=== PATIENT | male | born 1940 | race African-American/Black ===

== ENCOUNTER 2016-06-20 19:00 | Emergency (ER) | payer OTHER ==
[~2016-06-20] VITALS: Ht 177.8 cm; Wt 112.5 kg
[~2016-06-20 19:00] MED LIST: AMARYL2 M1 PO; AMARYL4 MG PO; ASA81BEC PO; ASPIR 8181 MG PO; BENICAR HCT 201 EACH PO; BENICAR20 MG PO; CLARITIN10 MG PO; COLACE100 MG PO; FLEXERIL PO; FLOMAX0.4 MG PO; GLYBURIDE 5 MG T5 M1 PO; GUAIFENESIN WI120 ML PO; IBUPROFEN 200200 M1 PO; KEFLEX500 MG PO; LEVAQUIN 750 M750 MG PO; NAPROSYN250 MG PO; NORCO 5-325 TA1 EACH PO; NORFLEX100 MG PO; PHENAZOPYRIDIN200 M2 PO; PROVENTIL HFA6.7 G1 INH; ROBAXIN 750 MG750 M1 PO; TYLENOL325 MG PO; ZPAK PO
[2016-06-20] MEDS ORDERED: SENOKOT-S1 TA1 PO (20:53)
[2016-06-20] MEDS ORDERED: NORCO 5-325 TA1 EACH PO (21:02)
== END 2016-06-20 21:11 | disposition home or self-care (01) ==
LOC: ER 19:00
DX: M16.11 Unilateral primary osteoarthritis, right hip (principal); I10 Essential (primary) hypertension; E11.9 Type 2 diabetes mellitus without complications; G47.30 Sleep apnea, unspecified; Z87.891 Personal history of nicotine dependence

== ENCOUNTER 2016-11-26 20:26 | Emergency (ER) | payer OTHER ==
[~2016-11-26] VITALS: Ht 177.8 cm; Wt 106.6 kg
[~2016-11-26 20:26] MED LIST changes: +SENOKOT-S1 TA1 PO
[2016-11-26] MEDS ORDERED: FLONASE 0.05%50 MCG NASAL (22:15)
[2016-11-26] MEDS ORDERED: TESSALON PERLE100 MG PO (22:15)
[2016-11-26] MEDS ORDERED: COZAAR 25 MG TA25 MG PO (22:22)
== END 2016-11-26 22:50 | disposition home or self-care (01) ==
LOC: ER 20:26
DX: J06.9 Acute upper respiratory infection, unspecified (principal); I10 Essential (primary) hypertension; E11.9 Type 2 diabetes mellitus without complications; G47.30 Sleep apnea, unspecified; Z87.891 Personal history of nicotine dependence

== ENCOUNTER 2017-02-02 18:57 | Emergency (ER) | payer OTHER ==
[~2017-02-02] VITALS: Ht 180.3 cm; Wt 106.6 kg
[~2017-02-02 18:57] MED LIST changes: +COZAAR 25 MG TA25 MG PO; +FLONASE 0.05%50 MCG NASAL; +TESSALON PERLE100 MG PO
[2017-02-02] MEDS ORDERED: COZAAR 25 MG TA25 M1 PO (19:28)
[2017-02-02] MEDS ORDERED: IBUPROFEN 600600 M1 PO (21:01)
== END 2017-02-02 21:22 | disposition home or self-care (01) ==
LOC: ER 18:57
DX: S01.81XA Laceration without foreign body of other part of head, initial encounter (principal); I10 Essential (primary) hypertension; E11.9 Type 2 diabetes mellitus without complications; Z87.891 Personal history of nicotine dependence; V89.2XXA Person injured in unspecified motor-vehicle accident, traffic, initial encounter; Y93.89 Activity, other specified; Y92.89 Other specified places as the place of occurrence of the external cause; Y99.8 Other external cause status

== ENCOUNTER 2017-05-13 20:34 | Emergency (ER) | payer OTHER ==
[~2017-05-13] VITALS: Ht 177.8 cm; Wt 104.3 kg
--- NOTE | ~2017-05-13 | EKG ---
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 Clerk: francisca : 1940 Requested By: Jonathan Ortiz Order Number: [id number] MD: Shalom Young Measurements Intervals [place] Rate: 55 P: -2 UT: 228 QRS: -3 QRSD: 93 T: 19 QT: 423 QTc: 405 Interpretive Statements Sinus rhythm Prolonged [place] interval Low voltage, precordial leads Compared to ECG 10/19/2014 07:57:12 Low QRS voltage now present ST (T wave) deviation no longer present Electronically Signed On 05-14-2017 10:11:53 COTTON PRESSER by Shalom Young [email or web address] <ELECTRONICALLY SIGNED> By: Shalom Young MD 05/14/17 1011 45 45 Shalom Young MD /MARYURI
[~2017-05-13 20:34] MED LIST changes: +COZAAR 25 MG TA25 M1 PO; +IBUPROFEN 600600 M1 PO
[2017-05-13 21:07] LABS: ABSOLUTE NEUTROPHILS 2.1 thou/uL (1.4-8.2); BASOPHILS 0.9 % (0.0-2.0); EOSINOPHILS 4.1 % (0.0-3.0); HEMATOCRIT 40.7 % (42.0-52.0); HEMOGLOBIN 13.5 gm/dL (14.0-18.0); LYMPHOCYTES 43.8 % (24.0-44.0); MCH 30.9 pg (26.0-34.0); MCHC 33.2 g/dL (28.0-37.0); MCV 92.8 fL (80.0-100.0); MONOCYTES 6.8 % (1.0-8.0); PLATELET COUNT 123 thou/uL (150-400); POLYS 44.4 % (36.0-66.0); RBC 4.39 mil/uL (4.50-6.00); RDW 14.1 % (10.5-14.5); WBC 4.7 thou/uL (4.0-11.0)
[2017-05-13 21:14] LABS: ANION GAP 8 mmol/L (7-16); BUN 21 mg/dL (7-18); CALCIUM 9.1 mg/dL (8.5-10.1); CHLORIDE 104 mmol/L (98-107); CO2 27 mmol/L (21-32); CREATININE 1.4 mg/dL (0.7-1.3); GLUCOSE 128 mg/dL (74-106); SODIUM 139 mmol/L (136-145)
[2017-05-13 21:22] LABS: ALBUMIN 3.8 g/dL (3.4-5.0); LIPASE 69 U/L (73-393); SGOT 22 U/L (15-37); SGPT 29 U/L (30-65); TOTAL BILIRUBIN 0.6 mg/dL (<0.1-1.0); TOTAL PROTEIN 7.3 g/dL (6.4-8.2); TROPONIN-I < 0.04 ng/mL (<0.06)
[2017-05-13 22:42] LABS: URINE BILIRUBIN NEGATIVE (Negative); URINE BLOOD TRACE (Negative); URINE CLARITY CLEAR; URINE COLOR YELLOW; URINE GLUCOSE-RANDOM* NEGATIVE (Negative); URINE KETONES NEGATIVE (Negative); URINE LEUKOCYTES-REFLEX NEGATIVE (Negative); URINE NITRITE-REFLEX NEGATIVE (Negative); URINE PROTEIN (DIPSTICK) NEGATIVE (Negative); URINE SPECIFIC GRAVITY <= 1.005 (1.005-1.035)
[2017-05-14 00:03] VITALS: BP 146/85
[2017-10-29] MEDS ORDERED: HYDROCHLOROTH12.5 M1 PO (12:37)
[2017-10-29] MEDS ORDERED: COLACE100 MG PO (12:37)
[2017-10-29] MEDS ORDERED: BUTALB-APAP-CA1 EACH PO (12:37)
== END 2017-05-14 00:03 | disposition home or self-care (01) ==
LOC: ER 20:34
PROVIDERS: Emergency Medicine
DX: N40.0 Benign prostatic hyperplasia without lower urinary tract symptoms (principal); R10.32 Left lower quadrant pain; K59.00 Constipation, unspecified; I10 Essential (primary) hypertension; E11.9 Type 2 diabetes mellitus without complications; G47.30 Sleep apnea, unspecified; Z87.891 Personal history of nicotine dependence

== ENCOUNTER 2017-08-14 15:15 | Emergency (ER) | payer OTHER ==
[~2017-08-14] VITALS: Ht 177.8 cm; Wt 103.4 kg
[2017-08-14 16:32] LABS: ABSOLUTE NEUTROPHILS 4.7 thou/uL (1.4-8.2); BASOPHILS 0.2 % (0.0-2.0); EOSINOPHILS 0.6 % (0.0-3.0); HEMATOCRIT 40.3 % (42.0-52.0); HEMOGLOBIN 13.6 gm/dL (14.0-18.0); MCH 31.2 pg (26.0-34.0); MCHC 33.6 g/dL (28.0-37.0); MCV 92.6 fL (80.0-100.0); PLATELET COUNT 109 thou/uL (150-400); POLYS 87.2 % (36.0-66.0); RBC 4.35 mil/uL (4.50-6.00); RDW 14.2 % (10.5-14.5); WBC 5.4 thou/uL (4.0-11.0)
[2017-08-14 16:43] LABS: CALCIUM 8.6 mg/dL (8.5-10.1); CREATININE 1.4 mg/dL (0.7-1.3)
[2017-08-14 16:49] LABS: ALBUMIN 3.9 g/dL (3.4-5.0); DIRECT BILIRUBIN 0.2 mg/dL (<0.1-0.3); TOTAL BILIRUBIN 0.6 mg/dL (<0.1-1.0); TOTAL PROTEIN 7.2 g/dL (6.4-8.2)
[2017-08-14 17:50] LABS: URINE BILIRUBIN NEGATIVE (Negative); URINE BLOOD TRACE (Negative); URINE CLARITY CLEAR; URINE COLOR YELLOW; URINE GLUCOSE-RANDOM* NEGATIVE (Negative); URINE KETONES NEGATIVE (Negative); URINE LEUKOCYTES NEGATIVE (Negative); URINE NITRITE NEGATIVE (Negative); URINE PROTEIN (DIPSTICK) NEGATIVE (Negative); URINE UROBILINOGEN 0.2 E.U./dl (0.2-1.0)
[2017-08-14] MEDS ORDERED: CIPRO500 MG PO (18:16)
[2017-08-14] MEDS ORDERED: ONDANSETRON HCL4 M2 PO (18:16)
== END 2017-08-14 18:46 | disposition home or self-care (01) ==
LOC: ER 15:15
PROVIDERS: Nurse Practitioner
DX: A09 Infectious gastroenteritis and colitis, unspecified (principal); I10 Essential (primary) hypertension; E11.9 Type 2 diabetes mellitus without complications; F17.210 Nicotine dependence, cigarettes, uncomplicated

== ENCOUNTER 2018-06-11 19:59 | Emergency (ER) | payer OTHER ==
[~2018-06-11] VITALS: Ht 177.8 cm; Wt 102.1 kg
[~2018-06-11 19:59] MED LIST changes: +BUTALB-APAP-CA1 EACH PO; +CIPRO500 MG PO; +HYDROCHLOROTH12.5 M1 PO; +ONDANSETRON HCL4 M2 PO
[2018-06-11 20:27] LABS: ABSOLUTE NEUTROPHILS 3.3 thou/uL (1.4-8.2); BASOPHILS 0.6 % (0.0-2.0); EOSINOPHILS 2.1 % (0.0-3.0); HEMATOCRIT 42.5 % (42.0-52.0); HEMOGLOBIN 14.1 gm/dL (14.0-18.0); LYMPHOCYTES 31.8 % (24.0-44.0); MCHC 33.3 g/dL (28.0-37.0); MCV 93.1 fL (80.0-100.0); MONOCYTES 6.4 % (1.0-8.0); PLATELET COUNT 108 thou/uL (150-400); POLYS 59.1 % (36.0-66.0); RBC 4.56 mil/uL (4.50-6.00); RDW 13.7 % (10.5-14.5); WBC 5.6 thou/uL (4.0-11.0)
[2018-06-11 20:38] LABS: ANION GAP 11 mmol/L (7-16); BUN 25 mg/dL (7-18); CALCIUM 9.3 mg/dL (8.5-10.1); CHLORIDE 104 mmol/L (98-107); CO2 27 mmol/L (21-32); CREATININE 1.5 mg/dL (0.7-1.3); GLUCOSE 133 mg/dL (74-106); POTASSIUM 3.9 mmol/L (3.5-5.1); SODIUM 142 mmol/L (136-145)
[2018-06-11 20:44] LABS: SGOT 16 U/L (15-37); SGPT 26 U/L (30-65); TOTAL BILIRUBIN 0.7 mg/dL (<0.1-1.0); TOTAL PROTEIN 7.4 g/dL (6.4-8.2); TROPONIN-I <0.06 ng/mL (<0.06)
[2018-06-11] MEDS ORDERED: MOBIC15 MG PO (21:58)
[2018-06-11 22:03] VITALS: BP 138/75
--- NOTE | 2018-06-12 00:13 | EKG ---
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 : 1940 Requested By: Dianne Palacios Order Number: [id number] MD: Rome Obrien Measurements Intervals [place] Rate: 66 P: 39 KS: 229 QRS: 17 QRSD: 85 T: 120 QT: 366 QTc: 384 Interpretive Statements Sinus rhythm Prolonged KS interval early transition Nonspecific ST/T abnormalities Compared to ECG 05/13/2017 20:46:21 no significant changes Electronically Signed On 06-12-2018 0:13:34 CDT by Rome Obrien [email or web address] ��������������������������������������������� <ELECTRONICALLY SIGNED> ���������������������������������������� By: Rome Obrien MD ��������������������������������������������� 06/12/18 0013 04 José Luis Obrien MD /MARYURI
== END 2018-06-11 22:04 | disposition home or self-care (01) ==
LOC: ER 19:59
PROVIDERS: Emergency Medicine
DX: R07.89 Other chest pain (principal); I10 Essential (primary) hypertension; E11.9 Type 2 diabetes mellitus without complications; G47.30 Sleep apnea, unspecified; Z87.891 Personal history of nicotine dependence

== ENCOUNTER 2018-07-07 20:42 | Emergency (ER) | payer OTHER ==
[~2018-07-07] VITALS: Ht 177.8 cm; Wt 100.7 kg
[~2018-07-07 20:42] MED LIST changes: +MOBIC15 MG PO
[2018-07-07 20:43] VITALS: BP 112/76
[2018-07-07] MEDS ORDERED: ZYRTEC10 M2 PO (21:00)
[2018-07-07] MEDS ORDERED: FLONASE 0.05%50 MCG NASAL (21:00)
== END 2018-07-07 21:14 | disposition home or self-care (01) ==
LOC: ER 20:42
DX: J30.9 Allergic rhinitis, unspecified (principal); I10 Essential (primary) hypertension; E11.9 Type 2 diabetes mellitus without complications; G47.30 Sleep apnea, unspecified; Z87.891 Personal history of nicotine dependence

== ENCOUNTER 2019-01-13 11:19 | Emergency (ER) | payer OTHER ==
[~2019-01-13] VITALS: Ht 177.8 cm; Wt 102.1 kg
[~2019-01-13 11:19] MED LIST changes: +ZYRTEC10 M2 PO
[2019-01-13] MEDS ORDERED: ROXICODONE5 M2 PO (12:13)
[2019-01-13] MEDS ORDERED: SENNA-DOCUSATE1 EAC1 PO (12:13)
[2019-01-13] MEDS ORDERED: CLEOCIN HCL150 MG PO (12:13)
[2019-01-13 12:48] VITALS: BP 118/79
== END 2019-01-13 12:48 | disposition home or self-care (01) ==
LOC: ER 11:19
DX: L03.317 Cellulitis of buttock (principal); I10 Essential (primary) hypertension; E11.9 Type 2 diabetes mellitus without complications; G47.30 Sleep apnea, unspecified; Z87.891 Personal history of nicotine dependence

== ENCOUNTER 2019-01-15 14:50 | Emergency (ER) | payer OTHER ==
[~2019-01-15] VITALS: Ht 177.8 cm; Wt 102.1 kg
[~2019-01-15 14:50] MED LIST changes: +CLEOCIN HCL150 MG PO; +ROXICODONE5 M2 PO; +SENNA-DOCUSATE1 EAC1 PO
[2019-01-15 16:10] LABS: ABSOLUTE NEUTROPHILS 3.1 thou/uL (1.4-8.2); BASOPHILS 0.5 % (0.0-2.0); EOSINOPHILS 2.7 % (0.0-3.0); HEMATOCRIT 36.2 % (42.0-52.0); HEMOGLOBIN 11.7 gm/dL (14.0-18.0); LYMPHOCYTES 25.9 % (24.0-44.0); MCH 30.2 pg (26.0-34.0); MCHC 32.4 g/dL (28.0-37.0); MCV 93.2 fL (80.0-100.0); PLATELET COUNT 137 thou/uL (150-400); POLYS 59.9 % (36.0-66.0); RBC 3.88 mil/uL (4.50-6.00); RDW 14.8 % (10.5-14.5); WBC 5.2 thou/uL (4.0-11.0)
[2019-01-15 16:16] LABS: CREATININE 1.4 mg/dL (0.7-1.3)
[2019-01-15 16:22] LABS: ALBUMIN 3.4 g/dL (3.4-5.0); TOTAL BILIRUBIN 0.4 mg/dL (<0.1-1.0); TOTAL PROTEIN 7.1 g/dL (6.4-8.2)
[2019-01-15] MEDS ORDERED: DIPHENHIST50 MG PO (16:57)
[2019-01-15 17:07] VITALS: BP 134/65
== END 2019-01-15 17:07 | disposition home or self-care (01) ==
LOC: ER 14:50
PROVIDERS: Nurse Practitioner Family
DX: L05.01 Pilonidal cyst with abscess (principal); I10 Essential (primary) hypertension; E11.9 Type 2 diabetes mellitus without complications; G47.30 Sleep apnea, unspecified; Z87.891 Personal history of nicotine dependence

== ENCOUNTER 2019-05-03 14:36 | Emergency (ER) | payer OTHER ==
[~2019-05-03] VITALS: Ht 177.8 cm; Wt 103.4 kg
[~2019-05-03 14:36] MED LIST changes: +DIPHENHIST50 MG PO
[2019-05-03 14:37] VITALS: BP 137/79
[2019-05-03] MEDS ORDERED: MOBIC7.5 MG PO (15:45)
--- NOTE | 2019-05-03 18:24 | EKG ---
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 Hand: dedra : 1940 Requested By: Rani Shah Order Number: [id number] MD: Neel Moralez Measurements Intervals [place] Rate: 55 P: 48 OR: 249 QRS: -11 QRSD: 98 T: 70 QT: 422 QTc: 404 Interpretive Statements Sinus rhythm Prolonged OR interval Abnormal R-wave progression, early transition Left ventricular hypertrophy Compared to ECG 06/11/2018 20:05:22 Left ventricular hypertrophy now present Electronically Signed On 05-03-2019 18:23:01 SET O TYPE OPERATOR by Neel Moralez [email or web address] <ELECTRONICALLY SIGNED> By: Neel Moralez MD 05/03/19 1823 1537 153 Neel Moralez MD /MARYURI
== END 2019-05-03 16:04 | disposition home or self-care (01) ==
LOC: ER 14:36
DX: M54.10 Radiculopathy, site unspecified (principal); M25.512 Pain in left shoulder; I10 Essential (primary) hypertension; E11.9 Type 2 diabetes mellitus without complications; G47.30 Sleep apnea, unspecified; Z87.891 Personal history of nicotine dependence

== ENCOUNTER 2019-08-21 06:20 | Day surgery (SDC) | payer OTHER ==
[~2019-08-21] VITALS: Ht 188 cm; Wt 101.6 kg
[~2019-08-21 06:20] MED LIST changes: +COQ-10100 MG PO; +MOBIC7.5 MG PO; +VALSARTAN-HCTZ1 EAC3 PO; +[UNRECOGNIZED DRUG - OTHER] PO
[2019-08-21 07:33] LABS: HEMATOCRIT 40.4 % (42.0-52.0); HEMOGLOBIN 13.3 gm/dL (14.0-18.0); MCHC 33.1 g/dL (28.0-37.0); MCV 93.6 fL (80.0-100.0); RBC 4.31 mil/uL (4.50-6.00); RDW 14.5 % (10.5-14.5); WBC 4.5 thou/uL (4.0-11.0)
[2019-08-21 07:44] VITALS: BP 146/80
[2019-08-21 07:49] LABS: CALCIUM 8.9 mg/dL (8.5-10.1); CREATININE 1.4 mg/dL (0.7-1.3); POTASSIUM 3.9 mmol/L (3.5-5.1)
[2019-08-21] MEDS ORDERED: MIRALAX17 GM PO (08:27)
[2019-08-21] MEDS ORDERED: PERCOCET PO (08:27)
[2019-08-21 08:45] VITALS: BP 146/80
--- NOTE | 2019-08-23 13:09 | PATH ---
[facility] [address] [place] [address] PATHOLOGY RPT PROCEDURE Name: ELLA WAN Room #: DEP [facility] M.R.#: [id number] Admission: 08/21/19 Date of : 36 Discharge: 08/21/19 Report #: [id number] Path Case #: [id number] LCA Accession Number: [id number] . 01 Material submitted: . buttock - LEFT GLUTEAL ABSCESS. Modifiers: left . 01 Clinical history: . Perirectal abscess . 02 Diagnosis: Skin and subcutaneous tissue "left gluteal abscess", excision: - Marked acute and chronic inflammation with granulation tissue formation, consistent with abscess formation. - Negative for malignancy. . (MLK:lea; 08/22/2019) QMS 08/23/2019 1203 Local . 02 Electronically signed: . Kajal Stockton MD, Pathologist NPI- [id number] . 01 Gross description: . The specimen is received in formalin, labeled "Ella Wan Jr., left gluteal abscess". Received is a segment of pale junior tissue with attached possible valdez-brown skin measuring 1.6 x 1.0 x 0.4 cm in greatest dimensions. The specimen is submitted entirely in cassette A1. (CAA; 08/21/2019) QAC/QAC 08/21/2019 1800 Local . 02 Pathologist provided ICD-10: L02.31 . 02 CPT . 612746 Specimen Comment: A courtesy copy of this report has been sent to [phone] Specimen Comment: [phone] Specimen Comment: Report sent to / DR BUSTAMANTE Performed at: [address] [id number] MD Jl Cowart MD Phone: [phone] Performed at: [address] [id number] [address] [address] PATHOLOGY RPT PROCEDURE Name: ELLA WAN JR Room #: DEP [facility] Fani#: [id number] Admission: 08/21/19 Date of : 36 Discharge: 08/21/19 Report #: [id number] Path Case #: [id number] MD Di Vergara MD Phone: [phone]
== END 2019-08-21 09:35 | disposition home or self-care (01) ==
LOC: TBA 06:20 → OR 06:20
PROVIDERS: Surgery
DX: L02.31 Cutaneous abscess of buttock (principal); I10 Essential (primary) hypertension; E11.9 Type 2 diabetes mellitus without complications; G47.30 Sleep apnea, unspecified; Z98.890 Other specified postprocedural states; Z79.899 Other long term (current) drug therapy; Z96.653 Presence of artificial knee joint, bilateral; Z96.641 Presence of right artificial hip joint; Z98.41 Cataract extraction status, right eye; Z98.42 Cataract extraction status, left eye; Z87.891 Personal history of nicotine dependence; Z11.59 Encounter for screening for other viral diseases
CPT/HCPCS: 50010; 50101; 50386; 50403; 56527; 62110; 62900; 70005

== ENCOUNTER → 2019-09-10 | Outpatient (CLI) | payer OTHER ==
[~2019-09-10] MED LIST changes: +MIRALAX17 GM PO; +PERCOCET PO
== END ==
LOC: HYPER 08:03
PROVIDERS: ATTEND Emergency Medicine
DX: T81.31XA Disruption of external operation (surgical) wound, not elsewhere classified, initial encounter (principal); K61.1 Rectal abscess; E66.9 Obesity, unspecified; G47.30 Sleep apnea, unspecified; I10 Essential (primary) hypertension; Z87.891 Personal history of nicotine dependence; Z96.659 Presence of unspecified artificial knee joint; Z96.649 Presence of unspecified artificial hip joint; Z68.33 Body mass index [BMI] 33.0-33.9, adult; Y92.238 Other place in hospital as the place of occurrence of the external cause; Y83.8 Other surgical procedures as the cause of abnormal reaction of the patient, or of later complication, without mention of misadventure at the time of the procedure

== ENCOUNTER → 2019-09-17 | Outpatient (CLI) | payer OTHER | LOC: HYPER 08:00 | PROVIDERS: ATTEND Emergency Medicine | DX: T81.31XD Disruption of external operation (surgical) wound, not elsewhere classified, subsequent encounter (principal); K61.1 Rectal abscess; E66.9 Obesity, unspecified; G47.30 Sleep apnea, unspecified; I10 Essential (primary) hypertension; Z87.891 Personal history of nicotine dependence; Z68.33 Body mass index [BMI] 33.0-33.9, adult; Y83.8 Other surgical procedures as the cause of abnormal reaction of the patient, or of later complication, without mention of misadventure at the time of the procedure ==

== ENCOUNTER → 2019-10-01 | Outpatient (CLI) | payer OTHER | LOC: HYPER 10:42 | PROVIDERS: ATTEND Emergency Medicine | DX: T81.31XD Disruption of external operation (surgical) wound, not elsewhere classified, subsequent encounter (principal); K61.1 Rectal abscess; I10 Essential (primary) hypertension; G47.30 Sleep apnea, unspecified; Z87.891 Personal history of nicotine dependence; Y83.8 Other surgical procedures as the cause of abnormal reaction of the patient, or of later complication, without mention of misadventure at the time of the procedure ==

== ENCOUNTER 2019-10-13 15:41 | Inpatient (IN) | payer OTHER ==
[~2019-10-13] VITALS: Ht 177.8 cm; Wt 104.3 kg
[2019-10-13 15:49] VITALS: BP 96/61
[2019-10-13 16:53] LABS: ABSOLUTE NEUTROPHILS 2.5 thou/uL (1.4-8.2); BASOPHILS 0.7 % (0.0-2.0); EOSINOPHILS 4.8 % (0.0-3.0); HEMATOCRIT 41.6 % (42.0-52.0); HEMOGLOBIN 13.9 gm/dL (14.0-18.0); LYMPHOCYTES 40.3 % (24.0-44.0); MCH 30.9 pg (26.0-34.0); MCHC 33.4 g/dL (28.0-37.0); MCV 92.4 fL (80.0-100.0); MONOCYTES 8.5 % (1.0-8.0); PLATELET COUNT 125 thou/uL (150-400); POLYS 45.7 % (36.0-66.0); RDW 14.2 % (10.5-14.5); WBC 5.4 thou/uL (4.0-11.0)
[2019-10-13 16:57] LABS: ANION GAP 9 mmol/L (7-16); BUN 18 mg/dL (7-18); CHLORIDE 101 mmol/L (98-107); CO2 26 mmol/L (21-32); CREATININE 1.8 mg/dL (0.7-1.3); GLUCOSE 194 mg/dL (74-106); POTASSIUM 3.8 mmol/L (3.5-5.1); SODIUM 136 mmol/L (136-145)
[2019-10-13 17:05] LABS: TROPONIN-I <0.06 ng/mL (<0.06)
[2019-10-13 19:15] LABS: URINE BILIRUBIN NEGATIVE (Negative); URINE BLOOD NEGATIVE (Negative); URINE CLARITY CLEAR; URINE COLOR YELLOW; URINE GLUCOSE-RANDOM* NEGATIVE (Negative); URINE KETONES NEGATIVE (Negative); URINE LEUKOCYTES-REFLEX NEGATIVE (Negative); URINE NITRITE-REFLEX NEGATIVE (Negative); URINE PROTEIN (DIPSTICK) NEGATIVE (Negative); URINE UROBILINOGEN 0.2 E.U./dl (0.2-1.0)
[2019-10-13 20:15] VITALS: BP 135/71
[2019-10-13 20:49] VITALS: BP 130/75
[2019-10-13 21:05] VITALS: BP 142/74
--- NOTE | 2019-10-14 02:44 | NUR ---
RECEIVED REPORT FROM [place] ED RN.PATIENT ARRIVED TO ROOM 219.PATIENT A/O X3.FORGETFUL.UP INDEPENDENTLY.GENERALIZED PAIN.TYLENOL GIVEN.DENIES SOB. CALLED AND MENTION ABOUT PATIENT'S POSSIBLE EXPOSURE TO CARBON MONOXIDE LAST MONDAY.SHE ALSO MENTION THAT THE PATIENT HAS NOT BEEN USING HIS CPAP DUE TO DISCOMFORT.MONITOR SHOWS YOVANNY.PATIENT DENIES DIZZINESS.POC CONTINUED.
[2019-10-14 03:19] VITALS: BP 128/75
[2019-10-14 05:28] LABS: ANION GAP 7 mmol/L (7-16); BUN 18 mg/dL (7-18); CALCIUM 8.2 mg/dL (8.5-10.1); CHLORIDE 105 mmol/L (98-107); CHOLESTEROL 137 mg/dL (<200); CO2 28 mmol/L (21-32); CREATININE 1.5 mg/dL (0.7-1.3); GLUCOSE 159 mg/dL (74-106); HDL CHOLESTEROL 35 mg/dL (>40); LDL CHOLESTEROL 81 mg/dL (<100); POTASSIUM 3.5 mmol/L (3.5-5.1); SERUM ASSESSMENT Clear; SODIUM 140 mmol/L (136-145); TC:HDL 3.9 Ratio (Not establshd); TRIGLYCERIDE 107 mg/dL (<150); VLDL 21 mg/dL (<40)
[2019-10-14 08:00] VITALS: BP 135/79
--- NOTE | 2019-10-14 08:05 | EKG ---
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 10/14/19 0805 1652 1652 Enrique Pino MD, [facility] /EPI
--- NOTE | 2019-10-14 08:13 | EKG ---
[facility] [place] [address] ELECTROCARDIOGRAM REPORT Name: ELLA ALONSO Room #: 219-P ADM IN M.R.#: [id number] Admission: 10/13/19 Attend Phys: Beto Becerril MD, Discharge: Date of : 38 Report #: [id number] THIS REPORT FOR: cc: FAM - Family physician unknown FAM - Family physician unknown Neel Moralez MD ~ THIS REPORT FOR: //name// [facility] Test Date: 2019-10-14 Test Time: 07:29:42 Pat Name: ELLA ALONSO Department: Room: 219 P Gender: M Reporting Consultant: [facility] : 1940 Requested By: Artem Paige Order Number: [id number] : Neel Moralez Measurements Intervals [place] Rate: 48 P: 54 DC: 285 QRS: 5 QRSD: 97 T: 51 QT: 464 QTc: 415 Interpretive Statements Sinus bradycardia Prolonged [place] interval Posterior infarct, old Compared to ECG 10/13/2019 17:11:41 Myocardial infarct finding now present Sinus rhythm no longer present T-wave abnormality no longer present Electronically Signed On 10-14-2019 8:13:42 CDT by Neel Moralez [email or web address] <ELECTRONICALLY SIGNED> By: Neel Moralez MD 10/14/19812 8 8 Neel Moralez MD /EPI
--- NOTE | 2019-10-14 13:13 | EXE ---
[facility] [place] [address] STRESS ECHOCARDIOGRAM Name: ELLA ALONSO Room #: 219-P [facility] IN M.R.#: [id number] Admission: 10/13/19 Attend Phys: Beto Becerril MD, Discharge: Date of : 38 Report #: [id number] THIS REPORT FOR: cc: FAM - Family physician unknown FAM - Family physician unknown Beto Becerril MD [facility] ~ THIS REPORT FOR: //name// APPROVED REPORT Study performed: 10/14/2019 10:05:35 Exam: Stress Echocardiogram Indication: Atrial Fibrillation Patient Location: In-Patient Room #: 219 Status: routine Ht: 5 ft 10 in HR: 53 bpm BP: 118/76 mmHg Rhythm: Bradycardia Medical History Cardiac Risk Factors: HTN Exercise History: Indeterminate Procedure The patient underwent an Exercise Stress Test using the Papo Protocol. Blood pressure, heart rate, and EKG were monitored. An Echocardiogram was performed by solar panel technician in four stages in quad fashion. At peak stress, four selected images were obtained and placed side by side with resting images for comparison. Stress Test Details Stress Test: Exercise stress testing was performed using a Papo protocol. HR Resting HR: 53 bpm Max Heart Rate (APMHR): 139 bpm Max HR Achieved: 117 bpm Target HR (85% APMHR): 118 bpm % of APMHR: 84 Recovery HR: 59 bpm HR response to stress: Normal HR response to stress BP [facility] [address] [place] [address] STRESS ECHOCARDIOGRAM Name: ELLA ALONSO Room #: 219-P ADM IN M.R.#: [id number] Admission: 10/13/19 Attend Phys: Beto Becerril, Discharge: Date of : 36 Report #: [id number] Resting BP: 118/76 mmHg Max BP: 132/80 mmHg Recovery BP: 132/76 mmHg BP response to stress: Normal blood pressure response to stress. ECG Clinical Reason for Termination: Maximal effort Exercise duration: 6 min sec Highest Stage Achieved: Stage 2: 2.5 mph at 12% grade. Exercise capacity: 7.2 METs Overall Exercise Capacity for Age: Average Pre-Stress Echo The resting Echocardiogram showed normal left ventricular contractility with an estimated Ejection Fraction of about >55%. The resting echocardiogram demonstrated normal wall motion in all wall segments. Post-Stress Echo The stress Echocardiogram showed normal left ventricular contractility with an estimated Ejection Fraction of about 65-70%. Compared to rest, there were no stress-induced wall motion abnormalities. Conclusion Clinical Response: Non-ischemic Exercise Capacity: Average Stress ECG Response: Non-ischemic Stress Echo Images: Equivocal submax heart rate No prior study available for comparison. Other Information Study Quality: Adequate <Conclusion> submax heart rate <ELECTRONICALLY SIGNED> By: Beto Becerril MD, [facility] 10/14/19 1312 11 11 Beto Becerril MD, FACC /INF
--- NOTE | 2019-10-14 14:37 | H ---
[facility] [place] [address] HISTORY AND PHYSICAL Name: ELLA ALONSO Room #: 219-P ADM IN M.R.#: [id number] Admission: 10/13/19 Attend Phys: Beto Becerril MD, Discharge: Date of : 36 Report #: [id number] THIS REPORT FOR: cc: FAM - Family physician unknown FAM - Family physician unknown Beto Becerril MD [facility] ~ CC: [facility] unknown Beto Ochoa MD HISTORY OF PRESENT ILLNESS: The patient is an 79-year-old male. He is father of Dr. Stephie Ochoa, who came in the Emergency Room with 4 days of episodes of dizzy, lightheadedness and near syncopal episodes. He had been out in the heat and humidity, which has been extremely high here over the last few days. He takes valsartan HCT 320/25. He was predominantly bradycardic in the 50s and 60s in the Emergency Room. Report from the ER physician and looking for strips was that there was some paroxysms of AFib with a more rapid response with the rate in the 140 range. One strip evident here looks like there may be some AFib, RVR, so this may be consistent with a tachybrady issue. His rates are approaching 150, but they appear to be relatively shortlived. He said none of this ____ overnight, predominantly bradycardic in the 50s and 60s. He denies cardiac history. There has been no chest pain or anginal-type complaints. His father had an infarct in his 50s. No change in his exercise tolerance. MEDICATIONS: Valsartan HCT 320/25. PAST MEDICAL HISTORY: Positive for hypertension; 2 knee surgeries; hip replacement; cataract surgery; colonoscopy; sleep apnea, on CPAP; diet-controlled diabetes and a benign throat nodule. SOCIAL HISTORY: He is . Partially retired. No tobacco use. Minimal alcohol. Four children. ALLERGIES: No known drug allergies. FAMILY HISTORY: Father had an infarct in his 50s but lived until age 90. REVIEW OF SYSTEMS: Negative except for some occasional hesitancy and nocturia and as stated above. LABORATORY DATA: Sodium 140, potassium 3.5. Creatinine was 1.8, now 1.5 with some hydration overnight. Glucose 150s. Lipids are not elevated. Not on statin therapy. Total cholesterol 137, LDL 81. H and H are 13 and 41, white count is 5.4, platelets slightly low at 125. TSH 1.7. Hemoglobin A1c is pending. PHYSICAL EXAMINATION: [facility] [address] [place] [address] HISTORY AND PHYSICAL Name: ELLA ALONSO Room #: 219-P [facility] [place] .R.#: [id number] Admission: 10/13/19 Attend Phys: Beto Becerril MD, Discharge: Date of : 36 Report #: [id number] GENERAL: Pleasant, alert. He is comfortable in bed. VITAL SIGNS: Blood pressure 120s/70s, pulse is 50 and regular. HEENT: Eyes reveal xanthelasmas. Pharynx is clear. NECK: Shows preserved upstrokes without JVD or bruits. LUNGS: Clear. CARDIOVASCULAR: ____ regular rhythm, slightly bradycardic. No significant murmur or gallop. ABDOMEN: Soft. No HSM or abdominal bruit. EXTREMITIES: Reveal trace nonpitting edema. NEUROLOGIC: Nonfocal. SKIN: Warm and dry without xanthoma or ulcer. MUSCULOSKELETAL: Generalized arthritic changes. ASSESSMENT: 1. Presyncope, possible due to relative hypovolemia on ARB. 2. Paroxysmal atrial fibrillation with rapid ventricular response with underlying sinus bradycardia (tachybrady). 3. Degenerative joint disease. 4. Diet controlled diabetes. Awaiting hemoglobin A1c. RECOMMENDATIONS AND PLAN: Predominantly this is due to the ARB and the extreme heat and humidity and him to be an active outside, relative hypovolemia. Creatinine has improved 1.5. I will obtain a stress echo. He says he is certainly able to walk on treadmill looking for chronotropic response and ischemic response and would consider an outpatient monitor looking for the extent of paroxysmal atrial fibrillation. ____ are not able to really add any AV node inhibiting drugs on top of his bradycardia and see if there is recurrence of his AFib, it appeared to be AFib and not SVT or flutter with the rates were approaching 150 and these were transient from 2 or 3 strips from the Emergency Room. This has been discussed with the patient. Thank you for asking me to assist in the care of this patient. <ELECTRONICALLY SIGNED> By: Beto Becerril MD, [facility] 10/14/19 1437 0811 0849 Beto Becerril MD, FACC /nt
[2019-10-14 15:09] VITALS: BP 135/79
--- NOTE | 2019-10-14 17:13 | NUR ---
PT WAS DISCHARGED AROUND 1520, PIV AND TELE WERE DC'D. DISCHARGE INSTRUCTIONS REVIEWED WITH PT. ALL QUESTIONS ANSWERED. PT WHEELED OVER TO DR CONTEH'S OFFICE TO GET TELE MONITOR APPLIED.
--- NOTE | 2019-10-15 07:23 | EKG ---
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 : 1940 Requested By: Artem Paige Order Number: [id number] MD: Enrique Pino Measurements Intervals [place] Rate: 61 P: 52 [place]: 261 QRS: 20 QRSD: 89 T: 85 QT: 398 QTc: 401 Interpretive Statements Sinus rhythm Prolonged [place] interval Abnormal R-wave progression, early transition Borderline T wave abnormalities Compared to ECG 10/13/2019 16:52:46 No significant changes Electronically Signed On 10-15-2019 7:23:35 CDT by Enrique Pino [email or web address] <ELECTRONICALLY SIGNED> By: Enrique Pino MD, [facility] 10/15/19 0723 171 171 Enrique Pino MD, [facility] /EPI
--- NOTE | 2019-10-16 15:01 | D ---
[facility] [place] [address] [place] [address] DISCHARGE SUMMARY Name: ELLA ALONSO Room #: 219-P [facility] IN M.R.#: [id number] Admission: 10/13/19 Attend Phys: Beto Becerril MD, Discharge: 10/14/19 Date of : 36 Report #: [id number] THIS REPORT FOR: cc: ALISE - Family physician unknown FAM - Family physician unknown Beto Becerril MD [facility] ~ THIS REPORT FOR: //name// CC: ALISE unknown Beto Becerril [facility]: The patient is an 79-year-old male who was admitted from evidence of some tachybrady issues with some predominantly sinus bradycardia and presyncope, which I believe is predominantly due to the ARB, the valsartan and being out in the extremes of heat this summer. He was found to have some paroxysms of atrial fibrillation in the Emergency Room. There are some strips that are consistent with that with rates in the 140s range. These are short-lived and there has been no recurrence of that since his hospitalization here. Overnight, in fact, he has remained predominantly bradycardic. I did perform a stress echo here. He was able to go 6 minutes on a Papo protocol. Did have somewhat of a normal chronotropic response, obtained a maximum heart rate around 90, although made the stress portion somewhat submaximal. So it is exhibiting some slight decrease in chronotropic response, may be early sick sinus. No recurrent fibrillation issues noted and so we would hold on anticoagulation based on this very limited amount of findings. He will be discharged to home on one-half dose of his valsartan HCT 160/12.5. He is going to obtain a 2-week monitor, Zio patch in our office and then follow up in 3 weeks looking to evaluate for any recurrent AFib. He appears to be asymptomatic from the AFib and his symptoms at least were not associated with atrial fibrillation on the monitor when he initially was in the Emergency Room. I have asked him to avoid extremes of hot and cold, but particularly keep himself hydrated. I am going to again decrease his afterload director of exhibits, valsartan in half. Laboratory work was relatively unremarkable. The creatinine came down to 1.5 with some gentle hydration. Hemoglobin A1c was pending. His sugars have been running 130-150. Obviously want him to avoid predominantly the sweets and carbohydrates. His daughter is Stephie Ochoa, although I do not believe she is his primary physician. DISCHARGE DIAGNOSES: 1. Presyncope, probable relative hypovolemia and ARB afterload reducers. 2. Paroxysmal atrial fibrillation with minimal recurrence. 3. Early sick sinus syndrome with bradycardia, but preserved blood pressure. 4. Degenerative joint disease. 5. Diet controlled diabetes. [facility] [address] [place] [address] DISCHARGE SUMMARY Name: ELLA ALONSO Room #: 219-P DIS IN M.R.#: [id number] Admission: 10/13/19 Attend Phys: Beto Becerril MD, Discharge: 10/14/19 Date of : 36 Report #: [id number] RECOMMENDATIONS AND PLAN: We will place a monitor. We will decrease the valsartan in half to 160/12.5. Keep himself hydrated and followup will be in 3 weeks after the monitors obtained. If there would be significant recurrence of AFib then would need to consider therapy for tachybrady and possible anticoagulation. We will add an aspirin to his current regimen. <ELECTRONICALLY SIGNED> By: Beto Becerril MD, FACC 10/16/19 1501 1435 1531 Beto Becerril MD, FACC /nt
== END 2019-10-14 15:28 | disposition home or self-care (01) | DRG 640 ==
LOC: ER 15:41 → EROBS 19:40 → 2N 19:40
PROVIDERS: Emergency Medicine; ADMIT Internal Medicine Cardiovascular Disease; ATTEND Internal Medicine Cardiovascular Disease
DX: E86.0 Dehydration (principal); N17.0 Acute kidney failure with tubular necrosis; I48.0 Paroxysmal atrial fibrillation; I49.5 Sick sinus syndrome; I10 Essential (primary) hypertension; M19.90 Unspecified osteoarthritis, unspecified site; T46.5X5A Adverse effect of other antihypertensive drugs, initial encounter; E11.9 Type 2 diabetes mellitus without complications; T50.2X5A Adverse effect of carbonic-anhydrase inhibitors, benzothiadiazides and other diuretics, initial encounter; Z96.653 Presence of artificial knee joint, bilateral; Z96.641 Presence of right artificial hip joint; Z98.42 Cataract extraction status, left eye; Z98.41 Cataract extraction status, right eye; Y92.89 Other specified places as the place of occurrence of the external cause
CPT/HCPCS: 10081

== ENCOUNTER → 2019-10-15 | Outpatient (CLI) | payer OTHER | LOC: HYPER 10:48 | PROVIDERS: ATTEND Emergency Medicine | DX: T81.31XD Disruption of external operation (surgical) wound, not elsewhere classified, subsequent encounter (principal); K61.1 Rectal abscess; G47.30 Sleep apnea, unspecified; I10 Essential (primary) hypertension; Z87.891 Personal history of nicotine dependence; Y83.8 Other surgical procedures as the cause of abnormal reaction of the patient, or of later complication, without mention of misadventure at the time of the procedure ==

== ENCOUNTER → 2019-10-28 | Outpatient (CLI) | payer OTHER | LOC: HYPER 09:51 | PROVIDERS: ATTEND Emergency Medicine Emergency Medical Services | DX: T81.31XD Disruption of external operation (surgical) wound, not elsewhere classified, subsequent encounter (principal); K61.1 Rectal abscess; I10 Essential (primary) hypertension; G47.30 Sleep apnea, unspecified; Z87.891 Personal history of nicotine dependence; Y83.8 Other surgical procedures as the cause of abnormal reaction of the patient, or of later complication, without mention of misadventure at the time of the procedure ==

== ENCOUNTER → 2019-11-11 | Outpatient (CLI) | payer OTHER | LOC: SJCVC 13:50 | PROVIDERS: ATTEND Internal Medicine Cardiovascular Disease | DX: R94.31 Abnormal electrocardiogram [ECG] [EKG] (principal); I44.0 Atrioventricular block, first degree; I49.9 Cardiac arrhythmia, unspecified; I10 Essential (primary) hypertension; E78.00 Pure hypercholesterolemia, unspecified; E11.9 Type 2 diabetes mellitus without complications; Z79.899 Other long term (current) drug therapy; Z87.891 Personal history of nicotine dependence ==

== ENCOUNTER → 2019-11-21 | Outpatient (CLI) | payer OTHER | LOC: HYPER 10:25 | PROVIDERS: ATTEND Emergency Medicine | DX: T81.31XD Disruption of external operation (surgical) wound, not elsewhere classified, subsequent encounter (principal); K61.1 Rectal abscess; E66.9 Obesity, unspecified; G47.30 Sleep apnea, unspecified; I10 Essential (primary) hypertension; Z87.891 Personal history of nicotine dependence; Z68.33 Body mass index [BMI] 33.0-33.9, adult; Y83.8 Other surgical procedures as the cause of abnormal reaction of the patient, or of later complication, without mention of misadventure at the time of the procedure ==

== ENCOUNTER → 2019-12-20 | Outpatient (CLI) | payer OTHER | LOC: HYPER 08:13 | PROVIDERS: ATTEND Emergency Medicine | DX: T81.31XD Disruption of external operation (surgical) wound, not elsewhere classified, subsequent encounter (principal); K61.1 Rectal abscess; E66.9 Obesity, unspecified; G47.30 Sleep apnea, unspecified; I10 Essential (primary) hypertension; Z87.891 Personal history of nicotine dependence; Z68.33 Body mass index [BMI] 33.0-33.9, adult; Y83.8 Other surgical procedures as the cause of abnormal reaction of the patient, or of later complication, without mention of misadventure at the time of the procedure ==

== ENCOUNTER 2020-01-06 20:02 | Emergency (ER) | payer OTHER ==
[~2020-01-06] VITALS: Ht 177.8 cm; Wt 106.6 kg
[2020-01-06 21:00] LABS: BASOPHILS 0.8 % (0.0-2.0); EOSINOPHILS 4.5 % (0.0-3.0); HEMATOCRIT 39.3 % (42.0-52.0); HEMOGLOBIN 12.9 gm/dL (14.0-18.0); LYMPHOCYTES 41.7 % (24.0-44.0); MCH 30.3 pg (26.0-34.0); MCHC 32.9 g/dL (28.0-37.0); MCV 92.2 fL (80.0-100.0); MONOCYTES 9.2 % (1.0-8.0); PLATELET COUNT 116 thou/uL (150-400); POLYS 43.8 % (36.0-66.0); RBC 4.27 mil/uL (4.50-6.00); RDW 13.6 % (10.5-14.5); WBC 4.5 thou/uL (4.0-11.0)
[2020-01-06 21:01] LABS: URINE BILIRUBIN NEGATIVE (Negative); URINE BLOOD TRACE (Negative); URINE CLARITY CLEAR; URINE COLOR YELLOW; URINE GLUCOSE-RANDOM* 2+ (Negative); URINE KETONES NEGATIVE (Negative); URINE LEUKOCYTES-REFLEX NEGATIVE (Negative); URINE NITRITE-REFLEX NEGATIVE (Negative); URINE PROTEIN (DIPSTICK) NEGATIVE (Negative); URINE SPECIFIC GRAVITY 1.025 (1.005-1.035); URINE UROBILINOGEN 0.2 E.U./dl (0.2-1.0)
[2020-01-06 21:08] LABS: CALCIUM 8.8 mg/dL (8.5-10.1); CREATININE 1.4 mg/dL (0.7-1.3); POTASSIUM 3.9 mmol/L (3.5-5.1)
[2020-01-06 21:57] VITALS: BP 166/81
== END 2020-01-06 22:00 | disposition home or self-care (01) ==
LOC: ER 20:02
PROVIDERS: Emergency Medicine
DX: E11.65 Type 2 diabetes mellitus with hyperglycemia (principal); I10 Essential (primary) hypertension; Z87.891 Personal history of nicotine dependence; Z79.899 Other long term (current) drug therapy

== ENCOUNTER → 2020-05-26 | Outpatient (CLI) | payer OTHER | LOC: SJCVC 14:41 | PROVIDERS: ATTEND Internal Medicine Cardiovascular Disease | DX: R94.31 Abnormal electrocardiogram [ECG] [EKG] (principal); I11.9 Hypertensive heart disease without heart failure; E78.00 Pure hypercholesterolemia, unspecified; E11.9 Type 2 diabetes mellitus without complications; N40.0 Benign prostatic hyperplasia without lower urinary tract symptoms; Z87.891 Personal history of nicotine dependence; Z72.89 Other problems related to lifestyle; Z79.899 Other long term (current) drug therapy; Z79.84 Long term (current) use of oral hypoglycemic drugs ==

== ENCOUNTER → 2020-12-14 | Outpatient (CLI) | payer OTHER | LOC: SJCVC 15:09 | PROVIDERS: ATTEND Internal Medicine Cardiovascular Disease | DX: R94.31 Abnormal electrocardiogram [ECG] [EKG] (principal); I10 Essential (primary) hypertension; E78.00 Pure hypercholesterolemia, unspecified; E11.9 Type 2 diabetes mellitus without complications; I25.10 Atherosclerotic heart disease of native coronary artery without angina pectoris; E78.5 Hyperlipidemia, unspecified; Z79.899 Other long term (current) drug therapy; Z87.891 Personal history of nicotine dependence ==

== ENCOUNTER 2020-12-26 18:02 | Emergency (ER) | payer OTHER ==
[~2020-12-26] VITALS: Ht 177.8 cm; Wt 108.9 kg
[2020-12-26 19:57] VITALS: BP 178/90
== END 2020-12-26 20:00 | disposition home or self-care (01) ==
LOC: ER 18:02
DX: S46.911A Strain of unspecified muscle, fascia and tendon at shoulder and upper arm level, right arm, initial encounter (principal); I10 Essential (primary) hypertension; F17.210 Nicotine dependence, cigarettes, uncomplicated; X58.XXXA Exposure to other specified factors, initial encounter; Y93.89 Activity, other specified; Y92.89 Other specified places as the place of occurrence of the external cause; Y99.8 Other external cause status